=== PATIENT | male | born 1980 | race Two or more races ===

== ENCOUNTER 2017-09-22 22:00 | Emergency (ER) | payer MEDICAID ==
[~2017-09-22] VITALS: Ht 177.8 cm; Wt 83.9 kg
[2017-09-22 22:10] VITALS: BP 144/75
[2017-09-22] MEDS ORDERED: KETOROLAC TROMETHAMINE INJ 30 MG/ML VIAL IM STA (22:51)
[2017-09-22] MEDS ORDERED: KETOROLAC TROMETHAMINE INJ 30 MG/ML VIAL ONE (22:59)
== END 2017-09-23 00:03 | disposition home or self-care (01) ==
LOC: ER 22:00
DX: M54.5 Low back pain (principal); R26.2 Difficulty in walking, not elsewhere classified
CPT/HCPCS: A4606; J1885; Z7610